=== PATIENT | male | born 1955 | race Hispanic/Latino ===

== ENCOUNTER 2016-10-09 12:01 | Day surgery (SDC) | payer MEDICARE ==
[2016-10-09] MEDS ORDERED: ANCEF/STERILE WATER 2 GM/20 ML 2 GM/20 ML SYRINGE IV ONE (14:36)
[2016-10-09] MEDS ORDERED: HEPARIN 10,000 UNITS/10 ML ONE (14:39)
[2016-10-09] MEDS ORDERED: HEPARIN/NS 5000 UNIT/500ML(CATH LAB) 500 ML IR ONE (14:44)
[2016-10-09] MEDS ORDERED: NACL 0.9% 250ML 250 ML ONE (14:44)
[2016-10-09] MEDS: XYLOCAINE 1%/ EPI 1:100,000 INFILTRATI ONE ×2 (15:02→15:13)
[2016-10-09] MEDS: HEPARIN ONE ×2 (15:19→15:20)
--- NOTE | 2016-10-09 15:44 | Operative Report ---
Operative Report Operative Report: EXAM: 1. Ultrasound-guided evaluation of the right internal jugular vein 2. Fluoroscopic-guided cannulation of the chest tunneled access site 3. Selection of the IVC with venography 4. Selection of the SVC with venography 5. Fluoroscopic-guided placement of a right internal jugular tunneled cuffed hemodialysis catheter. DATE: 10/09/16 INDICATION: 60-year-old male recently had PermCath removed with infiltrated left upper extremity AV access which can longer be used until the infiltration subsides who does not have a ride to leave the hospital if conscious sedation is provided. Discussed attempting to cannulate it is old PermCath tract which can be performed without conscious sedation. If unsuccessful, we will need conscious sedation for new access PermCath insertion. MEDICATIONS: Please see nursing report for full details. Conscious sedation was not performed. Local anesthetic was performed. DEVICES: 23 cm tip to cuff 15 Fr dual lumen hemodialysis catheter SERVICE PARTS DRIVER: JAKY DONOVAN MD CONTRAST: None PROCEDURE: The risks, benefits, and alternatives were discussed and informed consent was obtained. The patient was transported to the angiography suite in satisfactory/ stable condition and was transported onto the angiography table. The patient's right internal jugular vein was assessed with ultrasound and determined to be patent prior to procedure. The patient was prepped and draped in a sterile fashion. The right internal jugular vein was evaluated under ultrasound and was patent. I then cleaned the healing tunneled exit site with chloraprep multiple times. With the use of a stiff angle Glidewire and an angled catheter, the old track was cannulated and the wire was advanced into the inferior vena cava. Angled catheter was used to select the inferior vena cava. Digital subtraction angiography was performed confirming patency of the inferior vena cava. Catheter was then retracted to the SVC which was selected. Digital subtraction angiography was performed demonstrate patency of the SVC. 0.035 inch stiff angle Glidewire was then passed into the IVC. Over the 0.035 inch wire, serial dilatation was performed with ultimate advancement of a 23 cm tip to cuff permcath. 2-0 Ethilon suture was used to secure the catheter at the dermatotomy. The catheter was charged with heparin 1000 units/mL space. Sterile dressing applied. The patient was transferred from the angiography suite back to the OPPU in stable condition. FINDINGS: 1. Excellent flow was obtained through the dialysis catheter with 20 mL syringes. 2. The catheter tip is in the right atrium. IMPRESSION: 1. Successful ultrasound and fluoroscopically guided placement of a right internal jugular tunneled cuffed hemodialysis catheter.
--- NOTE | 2016-10-09 15:46 | Short Stay Summary ---
Short Stay Documentation Date of service: 10/09/16 Narrative H&P: 60-year-old male with infiltration of left upper extremity AV access who requires catheter placement for hemodialysis access. - History Principal diagnosis: Malfunction of AV access H&P: obtained from office - Allergies and Medications Current Medications: Allergies fluoxetine HCl [From Prozac] Allergy (Severe, Verified 07/26/15 08:27) rage clonidine Adverse Reaction (Severe, Verified 07/26/15 08:27) Swelling Home Medications Medication Instructions Recorded Confirmed Last Taken Type AtorvaSTATin 40 mg PO QDAY 07/26/15 10/09/16 10/09/16 History 20mg Pantoprazole Sodium 40 mg PO QDAY 07/26/15 10/09/16 10/09/16 History 40mg RX: Allopurinol 100 mg PO QDAY 07/26/15 10/09/16 10/09/16 History 100mg RX: Amlodipine Besylate 10 mg PO QDAY 07/26/15 10/09/16 10/09/16 History 10mg RX: Arginine [l-Arginine] 500 mg PO BID 07/26/15 10/09/16 10/09/16 History 500mg RX: Ascorbic Acid [Vitamin C] 500 mg PO QDAY 07/26/15 10/09/16 10/09/16 History 500mg RX: Aspirin [Aspirin TAB] 81 mg PO QDAY 07/26/15 10/09/16 10/09/16 History 81mg RX: Cholecalciferol Vit D3 5,000 unit PO QDAY 07/26/15 10/09/16 10/09/16 History [Vitamin D3] 5000 RX: Furosemide [Lasix TAB] 80 mg PO BID 07/26/15 10/09/16 10/09/16 History 80mg RX: Insulin NPH, Human [NovoLIN N] 50 unit SUB-Q BID 07/26/15 10/09/16 10/09/16 05:00 History 50units RX: Insulin Regular, Human See Protocol SQ AC PRN 07/26/15 10/09/16 10/08/16 History [HumuLIN R] 15units RX: Magnesium 250 mg PO QDAY 07/26/15 10/09/16 10/09/16 History 250mg RX: Metoprolol Tartrate 100 mg PO BID 07/26/15 10/09/16 10/09/16 History 100mg RX: Multivitamin Tab [Multiple 1 each PO QDAY 07/26/15 10/09/16 10/09/16 History Vitamin TAB (Theragran)] 1 tab RX: [place]-3/Dha/Epa/Fish Oil [Fish 1 each PO QDAY 07/26/15 10/09/16 10/09/16 History Oil [place]-3 EC 1,200 mg] 1 tab RX: Saw [place] Fruit [Saw 450 mg PO QDAY 07/26/15 10/09/16 10/09/16 History [place]] 450mg RX: Tiotropium [Spiriva] 18 mcg IH QDAY 07/26/15 10/09/16 10/09/16 History RX: Vitamin E 400 unit PO QDAY 07/26/15 10/09/16 10/09/16 History 400mg RX: Gabapentin [Neurontin] 100 mg PO HS 10/09/16 10/09/16 10/08/16 History 100mg - Physical exam General appearance: no acute distress Lungs: Normal air movement Gastrointestinal: normal - Brief post op/procedure progress note Date of procedure: 10/09/16 Pre-op diagnosis: ESRD requiring hemodialysis access Post-op diagnosis: same Procedure: Right permcath placement Anesthesia: local Surgeon: JAKY DONOVAN Estimated blood loss: minimal Condition: stable - Hospital course Hospital course: Tolerated procedure well. Ready for discharge. - Disposition Condition at discharge: Stable Disposition: [id number]-01 TO HOME OR SELFCARE - Discharge Diagnoses (1) End-stage renal disease (ESRD) Status: Chronic Short Stay Discharge Plan Activity: advance as tolerated Weight Bearing Status: Weight Bear as Tolerated Diet: renal Wound: keep clean and dry (do not get catheter wet) Follow up with: PRIMARY CARE, [Primary Care Provider] - 7 Days
[2016-10-09 16:27] VITALS: BP 159/70
--- NOTE | 2016-10-10 10:44 | Vascular Lab Report ---
MISCELLANEOUS VESSEL IDENTIFICATION: COMMENTS ON THE SCAN: The right internal jugular vein was identified and under real-time ultrasound guidance was cannulated. IMPRESSION: Successful ultrasound guided vein cannulation.
== END 2016-10-09 16:45 | disposition home or self-care (01) ==
LOC: CATHLABREC 12:01
PROVIDERS: ATTEND Radiology Diagnostic Radiology
DX: T82.590A Other mechanical complication of surgically created arteriovenous fistula, initial encounter (principal); E11.22 Type 2 diabetes mellitus with diabetic chronic kidney disease; I12.0 Hypertensive chronic kidney disease with stage 5 chronic kidney disease or end stage renal disease; N18.6 End stage renal disease; J45.909 Unspecified asthma, uncomplicated; J43.9 Emphysema, unspecified; E78.00 Pure hypercholesterolemia, unspecified; K21.9 Gastro-esophageal reflux disease without esophagitis; F17.200 Nicotine dependence, unspecified, uncomplicated; Z88.8 Allergy status to other drugs, medicaments and biological substances; Z79.82 Long term (current) use of aspirin; Z79.899 Other long term (current) drug therapy; Z79.4 Long term (current) use of insulin; Z99.2 Dependence on renal dialysis; Z87.442 Personal history of urinary calculi; Z87.01 Personal history of pneumonia (recurrent); Z98.890 Other specified postprocedural states; Z89.611 Acquired absence of right leg above knee; Y83.2 Surgical operation with anastomosis, bypass or graft as the cause of abnormal reaction of the patient, or of later complication, without mention of misadventure at the time of the procedure; Z80.9 Family history of malignant neoplasm, unspecified; Z83.3 Family history of diabetes mellitus; Z82.49 Family history of ischemic heart disease and other diseases of the circulatory system
CPT/HCPCS: 36415; 36558; 76937; 77001; 82962; 84132; C1750; C1751; C1769; J0690; J1644; J7050; Q9967

== ENCOUNTER 2016-12-04 08:03 | Day surgery (SDC) | payer MEDICARE ==
[~2016-12-04 08:03] MED LIST: ANCEF/STERILE WATER 2 GM/20 ML 2 GM/20 ML SYRINGE IV NR; NACL 0.9% 1000 ML 1,000 ML IV SCH
--- NOTE | 2016-12-04 08:53 | Anesthesia Day of Surgery ---
Anesthesia Day of Surgery - Day of Surgery Patient Examined: Yes Patient H&P Reviewed: Yes Patient is NPO: Yes
--- NOTE | 2016-12-04 08:53 | Anesthesia Consultation ---
Anesthesia Consult and Med Hx Date of service: 12/04/16 - Airway Anesthetic Teeth Evaluation: Poor ROM Head & Neck: Inadequate Mental/Hyoid Distance: Inadequate Intubation Access Assessment: Possibly Difficult - Pulmonary Exam CTA: Yes - Cardiac Exam Cardiac Exam: RRR - Pre-Operative Health Status Proposed Anesthetic Plan: General - Pre-Anesthesia Comment Pre-Anesthesia Comments: 05/12 holosystolic murmur - Pulmonary Hx Smoking: Yes (former) Hx Asthma: Yes (? history, not on any asthma meds) Hx Respiratory Symptoms: Yes (Presently breathing at baseline) COPD: Yes (2014) Hx Pneumonia: No Hx Sleep Apnea: Yes (No CPAP) - Cardiovascular System Hx Hypertension: Yes Hx Coronary Artery Disease: Yes Hx Heart Attack/AMI: Yes (yes, S/P CABG) Hx Angina: Yes (stable with fixed apical deficit.) Hx Percutaneous Transluminal Coronary Angioplasty (PTCA): Yes Hx Pacemaker: No Hx Internal Defibrillator: No Hx Valvular Heart Disease: Yes Hx Heart Murmur: No Hx Peripheral Vascular Disease: Yes (R BKA) - Central Nervous System Hx Seizures: No CVA: Yes (found on CT scan, no deficits) Hx Psychiatric Problems: No - Gastrointestinal Hx Ulcer: Yes (gastric, duodenal) - Endocrine Hx Renal Disease: Yes Hx End Stage Renal Disease: Yes Hx Liver Disease: No Hx Insulin Dependent Diabetes: Yes (BSL 198) Hx Non-Insulin Dependent Diabetes: Yes Hx Thyroid Disease: No - Hematic Hx Anemia: Yes - Other Systems Hx Alcohol Use: Yes (past hx ETOH abuse) Hx Cancer: No
[2016-12-04] MEDS ORDERED: DILAUDID IV PRN (08:54)
[2016-12-04] MEDS ORDERED: PERCOCET 5/325 PO PRN (08:54)
[2016-12-04] MEDS ORDERED: ZOFRAN IV PRN (08:54)
[2016-12-04] MEDS ORDERED: PEPCID IV NR (09:00)
[2016-12-04] MEDS ORDERED: VERSED IV NR (09:00)
[2016-12-04 09:48] LABS: Basophils % (Auto) 1.2 % (0.0-1.8); Eosinophils % (Auto) 7.3 % (0.0-4.3); Hemoglobin 11.2 gm/dl (11.8-15.2); Mean Corpuscular HGB Conc 33 % (32-34); Mean Corpuscular Hemoglobin 31 pg (28-32); Mean Corpuscular Volume 94 fl (84-94); Platelet Count 148 K/mm3 (140-440); Red Blood Count 3.61 M/mm3 (3.65-5.03); Red Cell Distribution Width 16.2 % (13.2-15.2); White Blood Count 4.5 K/mm3 (4.5-11.0)
[2016-12-04 10:04] LABS: BUN/Creatinine Ratio 8.09; Calcium 8.8 mg/dL (8.4-10.2)
[2016-12-04 10:46] LABS: Chloride 96.6 mmol/L (98-107); Potassium 4.9 mmol/L (3.6-5.0)
[2016-12-04] MEDS ORDERED: XYLOCAINE MPF 2% ONE (10:50)
[2016-12-04] MEDS ORDERED: DIPRIVAN 10 MG/ML IV ONE (10:50)
[2016-12-04] MEDS ORDERED: DECADRON ONE (10:50)
[2016-12-04] MEDS ORDERED: ZOFRAN ONE (10:51)
[2016-12-04] MEDS ORDERED: DILAUDID ONE (10:51)
[2016-12-04] MEDS ORDERED: XYLOCAINE 1% 20 mL ONE (11:21)
[2016-12-04] MEDS ORDERED: HEPARIN 10,000 UNITS/10 ML 2,000 UNIT in NACL 0.9% 500 ML 500 ML IR ONE (11:42)
[2016-12-04] MEDS ORDERED: HEPARIN 10,000 UNITS/10 ML IV ONE (11:43)
[2016-12-04] MEDS ORDERED: NACL 0.9% IR ONE (11:43)
[2016-12-04] MEDS ORDERED: MARCAINE-EPI 0.5%-1:200,000 INFILTRATI ONE (11:43)
[2016-12-04] MEDS ORDERED: NEO SYNEPHRINE ONE (12:05)
[2016-12-04] MEDS ORDERED: NACL 0.9% 100 ML ONE (12:05)
[2016-12-04] MEDS ORDERED: MARCAINE 0.5% INFILTRATI ONE ×2 (12:46→13:35)
--- NOTE | 2016-12-04 13:24 | Operative Report ---
Operative Report Operative Report: Date of procedure: 12/04/2016 Pre-operative diagnosis: Mechanical complication of hemodialysis access fistula left arm end-stage renal disease stage V on dialysis Post-operative diagnosis: Same Procedure name(s): Revision of brachiocephalic AV fistula left upper arm Surgeon: Gurdeep Mobley MD [employer] Reconditioning Inspector: Belkys Beckman.DO Anesthesia: Gen. with LMA EBL: Minimal Specimen(s): None, implants none Complications: None Findings: Large upper arm AV fistula successfully mobilized to the subdermal tissue plane. Shows should be readily accessible for cannulation in 2-4 weeks Procedure: Patient in supine position after adequate levels of anesthesia was obtained the left arm was extended and prepped and draped using standard sterile technique. Confirm the presence, course, and depth of the functioning AV fistula in the upper arm then proceeded to make a longitudinal incision over the top of the fistula beginning in the distal one third of the upper arm and extending it proximally to close to the shoulder. Does the patient did have some tattoos the incision was slightly modified to preserve those tattoos configuration and details. Incision was then deepened through the subcutaneous tissue into the fistula was encountered and was mobilized and through out its entire length and it side branches were ligated using silk suture. Once the fistula was completely freed I then slightly mobilized the subcutaneous fat and then closed the fascial layer underneath the fistula and a running 3-0 Vicryl suture. The fistula now lays on top of the fascial layer which places it immediately under the skin. The skin was then closed using 4-0 Monocryl for the reapproximating the edges of the tattoo to preserve the configuration. The fistula had an excellent thrill and bruit at the completion of the procedure. Skin was then reapproximated using Dermabond the patient was extubated and returned to the recovery room in stable condition having tolerated procedure well. Sponge and needle counts were correct.
--- NOTE | 2016-12-04 13:30 | Short Stay Summary ---
Short Stay Documentation Date of service: 12/04/16 - History H&P: obtained from office - Allergies and Medications Current Medications: Allergies fluoxetine HCl [From Prozac] Allergy (Severe, Verified 12/02/16 18:14) rage clonidine Adverse Reaction (Severe, Verified 12/02/16 18:14) Swelling Home Medications Medication Instructions Recorded Confirmed Last Taken Type Allopurinol 100 mg PO QDAY 07/26/15 12/03/16 10/09/16 History 100mg Amlodipine Besylate 10 mg PO QDAY 07/26/15 12/03/16 10/09/16 History 10mg Arginine [l-Arginine] 500 mg PO BID 07/26/15 12/03/16 10/09/16 History 500mg Ascorbic Acid [Vitamin C] 500 mg PO QDAY 07/26/15 12/03/16 10/09/16 History 500mg Aspirin [Aspirin TAB] 81 mg PO QDAY 07/26/15 12/03/16 10/09/16 History 81mg AtorvaSTATin 40 mg PO QDAY 07/26/15 12/03/16 10/09/16 History 20mg Cholecalciferol Vit D3 [Vitamin D3] 5,000 unit PO QDAY 07/26/15 12/03/16 History 5000 Furosemide [Lasix TAB] 80 mg PO BID 07/26/15 12/03/16 10/09/16 History 80mg Insulin NPH, Human [NovoLIN N] 40 unit SUB-Q QAM 07/26/15 12/03/16 10/09/16 05: 00 History 50units Insulin Regular, Human [HumuLIN R] See Protocol SQ AC PRN 07/26/15 12/03/1604/25 History 15units Magnesium 250 mg PO QDAY 07/26/15 12/03/16 10/09/16 History 250mg Metoprolol Tartrate 100 mg PO BID 07/26/15 12/03/16 10/09/16 History 100mg Multivitamin Tab [Multiple Vitamin 1 each PO QDAY 07/26/15 12/03/16 10/09/16 History TAB (Theragran)] 1 tab [place]-3/Dha/Epa/Fish Oil [Fish Oil 1 each PO QDAY 07/26/15 12/03/16 10/09/16 History [place]-3 EC 1,200 mg] 1 tab Pantoprazole Sodium 40 mg PO QDAY 07/26/15 12/03/16 10/09/16 History 40mg Saw [place] Fruit [Saw [place]] 450 mg PO QDAY 07/26/15 12/03/16 10/09/16 History 450mg Tiotropium [Spiriva] 18 mcg IH QDAY 07/26/15 12/03/16 10/09/16 History Vitamin E 400 unit PO QDAY 07/26/15 12/03/16 10/09/16 History 400mg Gabapentin [Neurontin] 300 mg PO HS 10/09/16 12/03/16 10/08/16 History 100mg ALBUTEROL Inhaler [Proair] 2 puff IH QID PRN 12/03/16 12/03/16 Unknown History Insulin NPH, Human [NovoLIN N] 35 unit SUB-Q HS 12/03/16 12/03/16 Unknown History Active Medications Famotidine (Pepcid) 20 mg IV PREOP NR Stop: 12/04/16 15:00 Last Admin: 12/04/16 09:54 Dose: 20 mg Cefazolin Sodium (Ancef/Sterile Water 2 Gm/20 Ml) 2 gm in 20 mls @ 80 mls/hr IV PREOP NR PRN Reason: Protocol Stop: 12/04/16 23:59 Sodium Chloride (Nacl 0.9% 1000 Ml) 1,000 mls @ 42 mls/hr IV DIRECT JANELLE Last Admin: 12/04/16 09:50 Dose: 42 mls/hr Midazolam HCl (Versed) 2 mg IV PREOP NR Stop: 12/04/16 23:59 Last Admin: 12/04/16 10:37 Dose: 2 mg - Brief post op/procedure progress note Date of procedure: 12/04/16 Procedure: Date of procedure: 12/04/2016 Pre-operative diagnosis: Mechanical complication of hemodialysis access fistula left arm end-stage renal disease stage V on dialysis Post-operative diagnosis: Same Procedure name(s): Revision of brachiocephalic AV fistula left upper arm Surgeon: Gurdeep Mobley MD Registered Nurse Renal: Belkys Beckman.DO Anesthesia: Gen. with LMA EBL: Minimal Specimen(s): None, implants none Complications: None Findings: Large upper arm AV fistula successfully mobilized to the subdermal tissue plane. Shows should be readily accessible for cannulation in 2-4 weeks Procedure: Patient in supine position after adequate levels of anesthesia was obtained the left arm was extended and prepped and draped using standard sterile technique. Confirm the presence, course, and depth of the functioning AV fistula in the upper arm then proceeded to make a longitudinal incision over the top of the fistula beginning in the distal one third of the upper arm and extending it proximally to close to the shoulder. Does the patient did have some tattoos the incision was slightly modified to preserve those tattoos configuration and details. Incision was then deepened through the subcutaneous tissue into the fistula was encountered and was mobilized and through out its entire length and it side branches were ligated using silk suture. Once the fistula was completely freed I then slightly mobilized the subcutaneous fat and then closed the fascial layer underneath the fistula and a running 3-0 Vicryl suture. The fistula now lays on top of the fascial layer which places it immediately under the skin. The skin was then closed using 4-0 Monocryl for the reapproximating the edges of the tattoo to preserve the configuration. The fistula had an excellent thrill and bruit at the completion of the procedure. Skin was then reapproximated using Dermabond the patient was extubated and returned to the recovery room in stable condition having tolerated procedure well. Sponge and needle counts were correct. - Hospital course Hospital course: benign - Disposition Condition at discharge: Stable Disposition: DC-01 TO HOME OR SELFCARE - Discharge Diagnoses (1) CKD (chronic kidney disease) stage V requiring chronic dialysis Status: Chronic (2) Mechanical complication of arteriovenous fistula surgically created Status: Chronic Qualifiers: Encounter type: initial encounter Qualified Code(s): T82.590A - Other mechanical complication of surgically created arteriovenous fistula, initial encounter (3) Anemia in chronic kidney disease (CKD) Status: Chronic Qualifiers: Chronic kidney disease stage: C (4) Type 2 diabetes mellitus with diabetic chronic kidney disease Status: Chronic Qualifiers: Diabetes mellitus chcf insulin use: D Chronic kidney disease stage: on chronic dialysis Short Stay Discharge Plan Activity: advance as tolerated Weight Bearing Status: Weight Bear as Tolerated Diet: diabetic, renal Wound: keep clean and dry Special Instructions: no heavy lifting Follow up with: SHAHBAZ NUNO MD [Primary Care Provider] - 7 Days GURDEEP MOBLEY MD [Staff Physician] - 14 Days Prescriptions: HYDROcodone/APAP 7.5-325 [[place] 7.5-325 mg TAB] 1 each PO Q6HR PRN #30 tablet PRN Reason: Pain
[2016-12-04] MEDS ORDERED: HEPARIN 10,000 UNITS/10 ML ONE (13:35)
[2016-12-04] MEDS ORDERED: NACL 0.9% 500 ML 500 ML ONE (13:35)
[2016-12-04] MEDS ORDERED: XYLOCAINE 1%/ EPI 1:100,000 INFILTRATI ONE (13:36)
[2016-12-04 14:22] VITALS: BP 146/65
--- NOTE | 2016-12-04 14:22 | Post Anesthesia Evaluation ---
- Post Anesthesia Evaluation Patient Participated: Yes Airway Patent: Yes Stable Respiratory Function: Yes Nausea/Vomiting: No Temp > 96.8F: Yes Pain Manageable: Yes Adequeate Hydration: Yes Anesthesia Complications: No Patient on Ventilator: No
== END 2016-12-04 15:30 | disposition home or self-care (01) ==
LOC: OR 08:03
PROVIDERS: ATTEND Surgery Vascular Surgery
DX: T82.590A Other mechanical complication of surgically created arteriovenous fistula, initial encounter (principal); E11.22 Type 2 diabetes mellitus with diabetic chronic kidney disease; I12.0 Hypertensive chronic kidney disease with stage 5 chronic kidney disease or end stage renal disease; D63.8 Anemia in other chronic diseases classified elsewhere; N18.6 End stage renal disease; E78.00 Pure hypercholesterolemia, unspecified; I25.10 Atherosclerotic heart disease of native coronary artery without angina pectoris; J43.9 Emphysema, unspecified; K21.9 Gastro-esophageal reflux disease without esophagitis; Z88.8 Allergy status to other drugs, medicaments and biological substances; Z79.82 Long term (current) use of aspirin; Z79.899 Other long term (current) drug therapy; Z99.2 Dependence on renal dialysis; Z87.01 Personal history of pneumonia (recurrent); Z87.442 Personal history of urinary calculi; Z87.19 Personal history of other diseases of the digestive system; Z98.890 Other specified postprocedural states; Z79.4 Long term (current) use of insulin; Z87.891 Personal history of nicotine dependence; Z95.1 Presence of aortocoronary bypass graft; Z95.5 Presence of coronary angioplasty implant and graft; Z86.73 Personal history of transient ischemic attack (TIA), and cerebral infarction without residual deficits; F10.21 Alcohol dependence, in remission; Y83.2 Surgical operation with anastomosis, bypass or graft as the cause of abnormal reaction of the patient, or of later complication, without mention of misadventure at the time of the procedure
CPT/HCPCS: 36415; 36832; 80048; 82962; 85025; J0690; J1100; J1170; J1644; J2250; J2370; J2405; J2704; J7030; J7040